=== PATIENT | female | born 1945 | race Caucasian/White ===

== ENCOUNTER 2024-01-15 22:00 | Inpatient (IN) | payer MEDICARE ==
[2024-01-15] MEDS: Sodium Chloride 0.9% 1,000 ML IV SCH (22:45)
[2024-01-15 22:55] LABS: HEMATOCRIT 39.2 % (34.3-46.0); HEMOGLOBIN 14.1 g/dL (11.2-15.5); MEAN CORPUSCULAR HEMOGLOBIN 28.9 pg (31.6-35.5); MEAN CORPUSCULAR VOLUME 80.3 fL (81.4-99.0); PLATELET COUNT,PLT 150 K/uL (130-375); RED BLOOD CELL COUNT 4.88 M/uL (3.77-5.24); WHITE BLOOD CELL COUNT,WBC 14.2 K/uL (3.2-11.0)
[2024-01-15 23:16] LABS: A/G RATIO 0.6 (1.2-2.2); ALANINE AMINOTRANSFERASE,ALT 58 U/L (12-78); ALBUMIN 2.2 g/dL (3.4-5.0); ALKALINE PHOSPHATASE 272 U/L (46-116); ASPARTATE AMNIOTRANSFERASE,AST 58 U/L (15-37); BILIRUBIN TOTAL 2.3 mg/dL (0.2-1.0); BLOOD UREA NITROGEN,BUN 27 mg/dL (7-18); CALCIUM 8.7 mg/dL (8.5-10.1); CARBON DIOXIDE,CO2 23 mmol/L (21-32); CHLORIDE,CL 98 mmol/L (100-108); CREATININE 1.5 mg/dL (0.6-1.0); EST CRCL DRUG DOSING (CG) 24.84 mL/min; ESTIMATED GFR 36 mL/min (>60); GLUCOSE RANDOM 184 mg/dL (74-106); SODIUM,NA 134 mmol/L (140-148)
[2024-01-15 23:25] LABS: ANION GAP 15.7 mmol/L (5.0-14.0); POTASSIUM,K 2.7 mmol/L (3.6-5.2)
[2024-01-15] MEDS: cefTRIAXone 2 GM in Sodium Chloride 0.9% 50 ML IV ONE (23:55)
[2024-01-16] MEDS: Potassium Chloride 100 ML ONE
[2024-01-16] MEDS: Sodium Chloride 0.9% 1,000 ML IV SCH ×2 (00:22→03:38)
[2024-01-16] MEDS: Potassium Chloride 10 MEQ in Premix Bag 1 BAG IV ONE (00:32)
[2024-01-16 00:55] LABS: BAND ABSOLUTE MAN 3.27 K/uL; BAND PERCENT MAN 23 % (5-11); LYMPHOCYTES ABSOLUTE MAN 1.99 K/uL (0.8-3.3); LYMPHOCYTES PERCENT MAN 14 % (24-44); MONOCYTES ABSOLUTE MAN 0.43 K/uL (0.20-0.90); MONOCYTES PERCENT MAN 3 % (2-6); NEUTROPHILS ABSOLUTE MAN 8.52 K/uL (1.0-7.6); SEG NEUTROPHILS PERCENT MAN 60 % (36-66)
[2024-01-16 01:09] LABS: APPEARANCE,URINE CLOUDY (CLEAR); BILIRUBIN,URINE MODERATE (NEGATIVE); GLUCOSE,URINE NEGATIVE (NEGATIVE); KETONES,URINE TRACE mg/dL (NEGATIVE); LEUKOCYTE ESTERASE,URINE NEGATIVE (NEGATIVE); NITRITE,URINE NEGATIVE (NEGATIVE); OCCULT BLOOD,URINE MODERATE (NEGATIVE); PROTEIN,URINE >=300 mg/dL (NEGATIVE)
[2024-01-16 01:40] LABS: COLOR,URINE OTHER (YELLOW)
[2024-01-16 01:41] LABS: AMORPHOUS SEDIMENT,URINE NOT SEEN; BACTERIA,URINE FEW; EPITHELIAL CELLS,URINE FEW; MUCUS,URINE RARE
[2024-01-16] MEDS ORDERED: Bisacodyl 5 MG Tab PO PRN (03:12)
[2024-01-16] MEDS ORDERED: Docusate Sodium 100 MG Cap PO PRN (03:12)
[2024-01-16 05:25] LABS: HEMATOCRIT 34.9 % (34.3-46.0); HEMOGLOBIN 12.3 g/dL (11.2-15.5); MEAN CORPUSCULAR HEMOGLOBIN 28.5 pg (31.6-35.5); MEAN CORPUSCULAR HGB CONC 35.2 g/dL (31.6-35.5); MEAN CORPUSCULAR VOLUME 80.8 fL (81.4-99.0); PLATELET COUNT,PLT 129 K/uL (130-375); RED BLOOD CELL COUNT 4.32 M/uL (3.77-5.24); WHITE BLOOD CELL COUNT,WBC 13.1 K/uL (3.2-11.0)
[2024-01-16 05:49] LABS: BAND PERCENT MAN 29 % (5-11); LYMPHOCYTES ABSOLUTE MAN 1.83 K/uL (0.8-3.3); LYMPHOCYTES PERCENT MAN 14 % (24-44); MONOCYTES ABSOLUTE MAN 0.79 K/uL (0.20-0.90); MONOCYTES PERCENT MAN 6 % (2-6); NEUTROPHILS ABSOLUTE MAN 6.68 K/uL (1.0-7.6); SEG NEUTROPHILS PERCENT MAN 51 % (36-66)
[2024-01-16 05:50] LABS: CREATININE 1.1 mg/dL (0.6-1.0); EST CRCL DRUG DOSING (CG) 33.87 mL/min
[2024-01-16 05:59] LABS: ANION GAP 15.9 mmol/L (5.0-14.0); POTASSIUM,K 2.9 mmol/L (3.6-5.2)
[2024-01-16] MEDS: Potassium Chloride 20 MEQ Tab.ER PO ONE ×3 (06:08→10:08)
[2024-01-16] MEDS: amLODIPine 5 MG Tab PO SCH (09:59)
[2024-01-16] MEDS: Acetaminophen 325 MG Tab PO PRN (09:59)
[2024-01-16] MEDS: Enoxaparin 40 MG/0.4 ML Syringe SUBCUT SCH (09:59)
[2024-01-16] MEDS: Anastrozole 1 MG Tab PO SCH (09:59)
[2024-01-16] MEDS: cefTRIAXone 1 GM in Sodium Chloride 0.9% 50 ML IV SCH (10:08)
[2024-01-16] MEDS: Albuterol 0.083% 2.5 MG/3 ML Neb Soln NEB PRN (13:13)
[2024-01-16] MEDS: Sodium Chloride 0.9% 1,000 ML IV ONE (15:10)
[2024-01-16] MEDS ORDERED: Piperacillin/Tazobactam 4.5 GM in Sodium Chloride 0.9% 100 ML IV ONE (15:49)
[2024-01-16] MEDS ORDERED: Piperacillin/Tazobactam 4.5 GM in Sodium Chloride 0.9% 100 ML IV SCH (16:00)
[2024-01-16] MEDS: Piperacillin/Tazobactam/Dext 4.5 GM in Premix Bag 1 BAG IV ONE (16:22)
[2024-01-16] MEDS: Piperacillin/Tazobactam/Dext 4.5 GM in Premix Bag 1 BAG IV SCH (19:31)
[2024-01-17] MEDS: traMADol 50 MG Tab PO PRN (02:23)
[2024-01-17 06:15] LABS: HEMATOCRIT 36.6 % (34.3-46.0); HEMOGLOBIN 13.2 g/dL (11.2-15.5); MEAN CORPUSCULAR HEMOGLOBIN 28.7 pg (31.6-35.5); MEAN CORPUSCULAR HGB CONC 36.1 g/dL (31.6-35.5); MEAN CORPUSCULAR VOLUME 79.6 fL (81.4-99.0); RED BLOOD CELL COUNT 4.6 M/uL (3.77-5.24); WHITE BLOOD CELL COUNT,WBC 18.4 K/uL (3.2-11.0)
[2024-01-17 06:37] LABS: CALCIUM 8.4 mg/dL (8.5-10.1); CREATININE 0.8 mg/dL (0.6-1.0); EST CRCL DRUG DOSING (CG) 46.58 mL/min; MAGNESIUM 1.4 mg/dL (1.8-2.4); POTASSIUM,K 3.1 mmol/L (3.6-5.2); VANCOMYCIN RANDOM 16.1 ug/mL (0.0-50.0)
[2024-01-17 06:38] LABS: ANION GAP 19.1 mmol/L (5.0-14.0)
[2024-01-17] MEDS: Magnesium Sulfate/Water 2 GM in Premix Bag 1 BAG IV SCH (08:42)
[2024-01-17] MEDS: Ondansetron 4 MG Tab.DIS PO PRN (08:50)
[2024-01-17] MEDS: Potassium Chloride 20 MEQ Tab.ER PO ONE ×2 (11:38→13:59)
[2024-01-17] MEDS: Magnesium Oxide 400 MG Tab PO SCH (11:38)
[2024-01-17] MEDS: Iopamidol 612 MG/ML 100 ML Bottle IV SCH (13:54)
[2024-01-17] MEDS: Sodium Chloride 0.9% 100 ML IV SCH (13:54)
[2024-01-17] MEDS: Sodium Chloride 0.9% 10 ML Syringe FLUSH ONE (13:54)
[2024-01-17 17:13] LABS: MAGNESIUM 2.1 mg/dL (1.8-2.4); POTASSIUM,K 3.9 mmol/L (3.6-5.2)
[2024-01-18 05:39] LABS: HEMATOCRIT 37.9 % (34.3-46.0); HEMOGLOBIN 13.6 g/dL (11.2-15.5); MEAN CORPUSCULAR HEMOGLOBIN 28.3 pg (31.6-35.5); MEAN CORPUSCULAR HGB CONC 35.9 g/dL (31.6-35.5); RED BLOOD CELL COUNT 4.8 M/uL (3.77-5.24); WHITE BLOOD CELL COUNT,WBC 18.3 K/uL (3.2-11.0)
[2024-01-18 06:00] LABS: CALCIUM 9.1 mg/dL (8.5-10.1); CREATININE 0.7 mg/dL (0.6-1.0); EST CRCL DRUG DOSING (CG) 53.23 mL/min; POTASSIUM,K 3.7 mmol/L (3.6-5.2)
[2024-01-18 06:03] LABS: ANION GAP 15.7 mmol/L (5.0-14.0)
[2024-01-18] MEDS ORDERED: Enoxaparin 100 MG/1 ML Syringe SUBCUT SCH (11:15)
[2024-01-18] MEDS: Enoxaparin 60 MG/0.6 ML Syringe SUBCUT ONE (11:26)
[2024-01-18] MEDS: Iopamidol 612 MG/ML 30 ML SDV PO ONE (11:28)
[2024-01-18] MEDS: Ibuprofen 600 MG Tab PO ONE (11:55)
[2024-01-18] MEDS: Sodium Chloride 0.9% 500 ML IV ONE (12:02)
[2024-01-18] MEDS: Sodium Chloride 0.9% 1,000 ML IV SCH ×2 (12:48→20:45)
[2024-01-18] MEDS ORDERED: Ciprofloxacin in D5W 400 MG in Premix Bag 1 BAG IV SCH (14:00)
[2024-01-18] MEDS: Ciprofloxacin in D5W 400 MG in Premix Bag 1 BAG IV SCH (14:39)
[2024-01-18] MEDS: Enoxaparin 100 MG/1 ML Syringe SUBCUT SCH (22:18)
[2024-01-19 05:17] LABS: HEMATOCRIT 32.8 % (34.3-46.0); MEAN CORPUSCULAR HEMOGLOBIN 28.7 pg (31.6-35.5); MEAN CORPUSCULAR HGB CONC 36.6 g/dL (31.6-35.5); MEAN CORPUSCULAR VOLUME 78.5 fL (81.4-99.0); RED BLOOD CELL COUNT 4.18 M/uL (3.77-5.24); WHITE BLOOD CELL COUNT,WBC 16.4 K/uL (3.2-11.0)
[2024-01-19 05:32] LABS: CALCIUM 8.1 mg/dL (8.5-10.1); CREATININE 0.7 mg/dL (0.6-1.0); EST CRCL DRUG DOSING (CG) 53.23 mL/min; MAGNESIUM 1.5 mg/dL (1.8-2.4); POTASSIUM,K 3.2 mmol/L (3.6-5.2)
[2024-01-19 05:36] LABS: ANION GAP 15.2 mmol/L (5.0-14.0)
[2024-01-19] MEDS: Magnesium Sulfate/Water 2 GM in Premix Bag 1 BAG IV SCH (08:26)
[2024-01-19] MEDS: Potassium Chloride 20 MEQ Tab.ER PO ONE ×2 (08:27→16:58)
[2024-01-19] MEDS: Ibuprofen 400 MG Tab PO PRN (15:05)
[2024-01-19] MEDS: Furosemide 20 MG/2 ML VIAL IVPUSH ONE (15:06)
[2024-01-19] MEDS ORDERED: Furosemide 40 MG/4 ML VIAL IVPUSH ONE (16:00)
[2024-01-19] MEDS: Water For Injection, Sterile 40 ML ONE (23:41)
[2024-01-20] MEDS: Witch Hazel Medicated Pads 100/Jar TOP PRN (04:37)
[2024-01-20 05:02] LABS: HEMATOCRIT 33.2 % (34.3-46.0); HEMOGLOBIN 12.1 g/dL (11.2-15.5); MEAN CORPUSCULAR HEMOGLOBIN 28.7 pg (31.6-35.5); MEAN CORPUSCULAR HGB CONC 36.4 g/dL (31.6-35.5); MEAN CORPUSCULAR VOLUME 78.7 fL (81.4-99.0); RED BLOOD CELL COUNT 4.22 M/uL (3.77-5.24); WHITE BLOOD CELL COUNT,WBC 11.6 K/uL (3.2-11.0)
[2024-01-20 05:20] LABS: CALCIUM 8.6 mg/dL (8.5-10.1); CREATININE 0.6 mg/dL (0.6-1.0); EST CRCL DRUG DOSING (CG) 62.1 mL/min; MAGNESIUM 1.9 mg/dL (1.8-2.4); POTASSIUM,K 3.9 mmol/L (3.6-5.2)
[2024-01-20 05:22] LABS: ANION GAP 14.9 mmol/L (5.0-14.0)
[2024-01-20] MEDS: Furosemide 20 MG/2 ML VIAL IVPUSH ONE (08:17)
[2024-01-20] MEDS: Potassium Chloride 20 MEQ Tab.ER PO ONE ×2 (08:17→17:02)
[2024-01-20] MEDS: Furosemide 20 MG/2 ML VIAL IVPUSH SCH (17:35)
[2024-01-21 05:12] LABS: HEMATOCRIT 30.6 % (34.3-46.0); HEMOGLOBIN 11.3 g/dL (11.2-15.5); MEAN CORPUSCULAR HGB CONC 36.9 g/dL (31.6-35.5); MEAN CORPUSCULAR VOLUME 78.7 fL (81.4-99.0); RED BLOOD CELL COUNT 3.89 M/uL (3.77-5.24); WHITE BLOOD CELL COUNT,WBC 10.2 K/uL (3.2-11.0)
[2024-01-21 05:29] LABS: CALCIUM 8.6 mg/dL (8.5-10.1); CREATININE 0.6 mg/dL (0.6-1.0); EST CRCL DRUG DOSING (CG) 61.56 mL/min; MAGNESIUM 1.6 mg/dL (1.8-2.4); POTASSIUM,K 3.9 mmol/L (3.6-5.2); VANCOMYCIN RANDOM 21.1 ug/mL (0.0-50.0)
[2024-01-21 05:30] LABS: ANION GAP 12.9 mmol/L (5.0-14.0)
[2024-01-21] MEDS: Magnesium Sulfate/Water 2 GM in Premix Bag 1 BAG IV SCH (08:47)
[2024-01-21 08:50] LABS: IRON,FE 111 ug/dL (50-170); PERCENT FE SATURATION 58 % (20-55); TOTAL IRON BINDING CAPACITY 193 ug/dl (250-450)
[2024-01-21] MEDS: Dimethicone 20%/Zinc Oxide 25% 56 GM Spray Bottle TOP PRN (08:59)
[2024-01-22 05:29] LABS: HEMATOCRIT 29.6 % (34.3-46.0); HEMOGLOBIN 10.9 g/dL (11.2-15.5); MEAN CORPUSCULAR HEMOGLOBIN 28.8 pg (31.6-35.5); MEAN CORPUSCULAR HGB CONC 36.8 g/dL (31.6-35.5); MEAN CORPUSCULAR VOLUME 78.3 fL (81.4-99.0); RED BLOOD CELL COUNT 3.78 M/uL (3.77-5.24); WHITE BLOOD CELL COUNT,WBC 9.7 K/uL (3.2-11.0)
[2024-01-22 05:49] LABS: CALCIUM 8.4 mg/dL (8.5-10.1); CREATININE 0.7 mg/dL (0.6-1.0); EST CRCL DRUG DOSING (CG) 52.77 mL/min; POTASSIUM,K 3.6 mmol/L (3.6-5.2)
[2024-01-22 05:50] LABS: ANION GAP 12.6 mmol/L (5.0-14.0)
[2024-01-22] MEDS: Potassium Chloride 20 MEQ Tab.ER PO ONE (08:23)
[2024-01-22] MEDS: Amoxicillin/Clavulanate K 875-125 MG Tab PO SCH (18:05)
[2024-01-22] MEDS: Rivaroxaban 15 MG Tab PO SCH (20:19)
[2024-01-22] MEDS: Ciprofloxacin 500 MG Tab PO SCH (20:19)
[2024-01-22] MEDS: Loperamide 2 MG Cap PO PRN (20:20)
[2024-01-22] MEDS ORDERED: Lactobacillus Rhamnosus GG (Probiotic) Cap PO SCH (21:00)
[2024-01-22] MEDS: Melatonin 3 MG Tab PO PRN (22:33)
[2024-01-23] MEDS: Lactobacillus Rhamnosus GG (Probiotic) Cap PO SCH (08:53)
[2024-01-23] MEDS: Hydrocortisone 1% Crm 30 GM Tube TOP SCH (10:40)
[2024-01-24 06:09] LABS: CALCIUM 8.9 mg/dL (8.5-10.1); CREATININE 0.6 mg/dL (0.6-1.0); EST CRCL DRUG DOSING (CG) 61.56 mL/min; POTASSIUM,K 4.1 mmol/L (3.6-5.2)
[2024-01-24 06:12] LABS: ANION GAP 11.1 mmol/L (5.0-14.0)
[2024-01-24] MEDS: diphenhydrAMINE 25 MG Cap PO PRN (14:15)
== END 2024-01-25 11:15 | disposition home or self-care (01) | DRG 871 ==
LOC: JP.ED 22:00 → JP.MS 01-16 02:35 → JP.ICU 01-16 15:52
PROVIDERS: ADMIT Hospitalist; ATTEND Internal Medicine
DX: A41.9 Sepsis, unspecified organism (principal); A41.89 Other specified sepsis; R55 Syncope and collapse; K55.019 Acute (reversible) ischemia of small intestine, extent unspecified; N39.0 Urinary tract infection, site not specified; K57.20 Diverticulitis of large intestine with perforation and abscess without bleeding; N17.9 Acute kidney failure, unspecified; K63.2 Fistula of intestine; R65.20 Severe sepsis without septic shock; I10 Essential (primary) hypertension; E87.6 Hypokalemia; I95.9 Hypotension, unspecified; E83.42 Hypomagnesemia; R60.0 Localized edema; R31.9 Hematuria, unspecified; Z79.2 Long term (current) use of antibiotics; Z79.3 Long term (current) use of hormonal contraceptives; Z79.899 Other long term (current) drug therapy; Z85.3 Personal history of malignant neoplasm of breast
CPT/HCPCS: 36415; 80053; 81001; 83605; 85025; 87040 ×2; 87077; 87086; A9270; J0696; J3480; J3490; J7030 ×2; U0002; 71260; 71260-26; 74177; 74177-26; 80048; 80202; 82728; 83550; 83735; 84132; 85027; 87493; 93005; 93010; 94640; 99221; 99231; 99232; 99238; 99285; J0744; J1650; J1940; J2543; J3370; J3475; J7040; J7050; Q0162; Q9967